=== PATIENT | male | born 1980 | race Caucasian/White ===

== ENCOUNTER 2018-07-23 04:33 | Emergency (ER) | payer OTHER ==
[~2018-07-23] VITALS: Ht 188 cm; Wt 86.2 kg
--- NOTE | 2018-07-23 04:33 | NUR ---
MARGARET KIRSHNA. AMBULATED TO CHAIR B.
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
[2018-07-23 04:37] VITALS: BP 142/94
--- NOTE | 2018-07-23 05:01 | NUR ---
Patient discharged with v/s stable. Written and verbal after care instructions given and explained. Patient verbalized understanding. [facility] in custody. All questions addressed prior to discharge. Advised to follow up with PMD.
[2018-07-23 05:02] VITALS: BP 142/94
== END 2018-07-23 05:01 | disposition home or self-care (01) ==
LOC: MED 04:33
DX: Z04.1 Encounter for examination and observation following transport accident (principal); V89.2XXA Person injured in unspecified motor-vehicle accident, traffic, initial encounter; Y93.89 Activity, other specified; Y92.89 Other specified places as the place of occurrence of the external cause; Y99.8 Other external cause status
CPT/HCPCS: 99283